=== PATIENT | male | born 1990 | race Caucasian/White ===

== ENCOUNTER → 2024-07-10 | Outpatient (CLI) | payer OTHER | LOC: M SLEEP HO 11:37 | PROVIDERS: ATTEND Internal Medicine | DX: R53.83 Other fatigue (principal) ==

== ENCOUNTER 2025-01-03 18:59 | Emergency (ER) | payer OTHER ==
[~2025-01-03] VITALS: Ht 175.3 cm; Wt 162.1 kg
[2025-01-03] MEDS ORDERED: ONDA-282 PO (21:09)
[2025-01-03] MEDS: ACETAMINOPHEN 500 MG TAB PO ONE (21:10)
[2025-01-03] MEDS: ONDANSETRON 4MG ORAL DISINTEGRATING TAB PO ONE (21:10)
[2025-01-03 21:35] VITALS: BP 137/83; TEMP 97.5; O2SAT 98
== END 2025-01-03 21:45 | disposition home or self-care (01) ==
LOC: M ED 18:59
DX: S06.0X0A Concussion without loss of consciousness, initial encounter (principal); Y92.9 Unspecified place or not applicable; Y93.9 Activity, unspecified; Y99.0 Civilian activity done for income or pay; W00.0XXA Fall on same level due to ice and snow, initial encounter; Z79.899 Other long term (current) drug therapy